=== PATIENT | female | born 1930 | race Caucasian/White ===

== ENCOUNTER 2016-10-30 10:43 | Outpatient (POV) | END 2016-10-30 10:44 | disposition home or self-care (01) | LOC: OUTPT 10:43 | PROVIDERS: ATTEND Otolaryngology | DX: G62.9 Polyneuropathy, unspecified (principal); R26.9 Unspecified abnormalities of gait and mobility ==

== ENCOUNTER 2016-10-30 12:13 | Outpatient (CLI) ==
[2016-10-30 12:57] VITALS: BMI 22.3
== END 2016-10-30 12:14 | disposition home or self-care (01) ==
LOC: DIETCN 12:13
PROVIDERS: ATTEND Psychiatry & Neurology Psychiatry
DX: F32.2 Major depressive disorder, single episode, severe without psychotic features (principal); F41.1 Generalized anxiety disorder

== ENCOUNTER 2016-10-30 15:01 | Outpatient (RCR) ==
[2016-10-30 12:57] VITALS: BMI 22.3
--- NOTE | 2016-10-31 16:49 | RS.OPPTEV2 ---
Date of Note: 10/30/16 Visit #: 1 Date of Evaluation: 10/30/16 Payer Source: MEDICARE Treatment Diagnosis: Gait difficulty, decreased balance Prior Level of Function.....Patient was independent with: ADL's, Self Care, Caregiving, Ambulation/Mobility, Community Integration/Access Functional Limitations: ADL's, Standing, Ambulation, Community Access/ Integration Current Subjective/complaints:: Patient reports she loses her balance quite a bit. States she has dizziness with activity. States she is not as active as she used to be. Walking very far and activities around the house cause increased back pain. She lays down a lot, because that gives her relief of her back pain. She has tingling in her feet at times, possibly due to being Diabetic. She denies catching her feet when walking. States she has stairs in her home, but she descends the stairs backward for safety. States she has had three big falls in the last two years. States lately she has been able to catch herself when getting off balance from being dizzy. Medical History Surgical History Comments:: Left TKA 2001, Right KTA 2006, Left TSR 2002, cataract surgery 2010, Left mastectomy 2012 Hx Home Medications: xanax, prozac Patient's Goals: Her goal is to be more safe with her walking. Functional Outcome Measure Tinetti: 18 (18/=35.8% impairment) - G Codes & Severity Modifier G Codes & Modifier: Mob current CJ. Mob goal CI Source of G Code score: Tinetti Assessment Observation - Observation Posture: Forward Head, Rounded Shoulders, Decreased Lumbar Lordosis Gait - Gait Pattern Gait Comments: Patient ambulates without an assistive device with decreased stance slightly on the left LE compared to the right. She demonstrates a slow, cautious gait. General Range of Motion: Bilateral LE AROM is WFL's. Muscle Strength: Bilateral hip strength is generally 4/5. Quads and HS 4 to 4+/ 5, ankles 4+/5. Trunk strength 4/5. Sensation - Sensation Comments: Currently reports sensation intact to light touch and deep pressure throughout bilateral LE's. Reports times of tingling in the feet. Balance - Sitting Balance Static Sitting Balance: Good Dynamic Sitting Balance: Good - Standing Balance Static Standing Balance: Good (-) Dynamic Standing Balance: Fair (+) - Comments Balance Assessment Comments: Patient demonstrates good static balance on the Balance Data Lead with eyes open. Eyes closed impairs static balance moderately. Attempted Limits of Stability to assess areas of impairment with dynamic balance. However, patient was unable to understand shifting her weight on her feet. Instead she moved her upper body in the direction she needed to go. Coordination - Tests Bilateral Toe Tapping: Normal/Intact Interventions - Exercise/Activities/Manual Therapy Exercises/Activities: none Manual Therapy: none - Charges Total Direct Minutes: 50 mins Total Treatment Time: 50 mins Procedures billed for this date of service:: ROS[facility] Assessment Assessment: Patient presents to therapy with a diagnosis of gait difficulty and neuropathy. She presents weakness in bilateral hips. Presents to be at a high risk for falls with a score of 18 on the Tinetti Assessment. Dynamic standing balance presents to be impaired. She demonstrates good potential to gain safety and decrease her risk for falls with strengthening and balance exercises. Patient Education: Education of diagnosis, Body/Joint mechanics, Activity Modification, Education of Plan of Care Rehab Potential: Good Short Term Goals Goal #1: Patient independent in basic HEP. Goal to be met by: 11/14/16 Goal #2: Bilateral hip flexion 4+/5. Goal to be met by: 11/14/16 Goal #3: Pt to demo. minimal displacement with static balance with eyes closed. Goal to be met by: 11/14/16 Alf Goals Goal #1: Pt knows HEP and to cont. ex's to maintain functional level at D/C. Goal to be met by: 12/10/16 Goal #2: Score on Tinetti Assessment improved to 23/28. Goal to be met by: 12/10/16 Goal #3: Pt to ambulate community distances with improved confidence & good safety. Goal to be met by: 12/10/16 Plan - Treatment to be Provided Procedures: Therapeutic Exercises, Therapeutic Activity, Neuromuscular Rehab, Patient Education Modalities: No Modalities - Treatment Plan Frequency: 1-2 X week Duration: 4 weeks ORDER # VISITS AND/OR THROUGH DATE: 12/10/16 - Treatment Code (1) Gait abnormality Comments: R26.9 (2) Impaired functional mobility, balance, gait, and endurance Comments: Z74.09 (3) Bilateral leg weakness Comments: R29.894
== END 2016-11-05 ==
PROVIDERS: ATTEND Family Medicine
DX: R26.9 Unspecified abnormalities of gait and mobility (principal); G62.9 Polyneuropathy, unspecified

== ENCOUNTER → 2016-11-05 | Outpatient (RCR) | LOC: NEWBEG 10-20 10:33 | PROVIDERS: ATTEND Psychiatry & Neurology Psychiatry | DX: F32.2 Major depressive disorder, single episode, severe without psychotic features (principal); F41.1 Generalized anxiety disorder | CPT/HCPCS: 90792; 90853; 97802; 99213 ==

== ENCOUNTER 2016-12-01 10:00 | Outpatient (RCR) | END 2016-12-05 | LOC: NEWBEG 10:00 | PROVIDERS: ATTEND Psychiatry & Neurology Psychiatry | DX: F32.2 Major depressive disorder, single episode, severe without psychotic features (principal); F41.1 Generalized anxiety disorder | CPT/HCPCS: 90853; 99213 ==

== ENCOUNTER 2017-01-02 10:00 | Outpatient (RCR) | END 2017-01-05 | LOC: NEWBEG 10:00 | PROVIDERS: ATTEND Psychiatry & Neurology Psychiatry | DX: F32.2 Major depressive disorder, single episode, severe without psychotic features (principal); F41.1 Generalized anxiety disorder | CPT/HCPCS: 90853; 99213 ==

== ENCOUNTER 2017-01-30 11:15 | Outpatient (RCR) | END 2017-02-05 | LOC: NEWBEG 11:15 | PROVIDERS: ATTEND Psychiatry & Neurology Psychiatry | DX: F32.2 Major depressive disorder, single episode, severe without psychotic features (principal); F41.1 Generalized anxiety disorder | CPT/HCPCS: 90853; 99213 ==

== ENCOUNTER 2017-09-04 11:00 | Outpatient (RCR) ==
--- NOTE | 2017-08-21 08:35 | RS.OPPTEV2 ---
Date of Note: 08/19/17 Visit #: 1 Date of Evaluation: 08/19/17 Payer Source: MEDICARE Surgery Performed?: No Treatment Diagnosis: muscle strain of R thigh History of Condition/Mechanism of Injury:: pt states she was carrying things up from basement at [facility] and pulled muscle. Prior Level of Function.....Patient was independent with: ADL's, Self Care, Caregiving, Ambulation/Mobility, Community Integration/Access Functional Limitations: ADL's, Standing, Ambulation, Community Access/ Integration Current Subjective/complaints:: pt sates that she has been having pain since [facility]. Treatment Side (optional): Right *Precautions: n/a Medical History Medical History: Diabetes, Cancer Surgical History: Knee Replacement, Hysterectomy Surgical History Comments:: Left TKA 2001, Right KTA 2006, Left TSR 2002, cataract surgery 2010, Left mastectomy 2012 Smoking Status: Never smoker Hx Home Medications: biotin, calcium carbonate, fish oil, gemfibrozil, glyburide , hydrocodone-acetaminophen, iron, metformin, mirtazapine, omeprazole, pravastatin, valsartan, vitamin D, Patient's Goals: decrease pain Pain Assessment - Pain Description Pain Location: R thigh Pain Description: Sharp, Aching Current Pain Intensity: 1-2/10 at rest Worst Pain Intensity: 10/10 Functional Outcome Measure LE Functional Scale: 13 (84%) - G Codes & Severity Modifier G Codes & Modifier: mobility current CM. mobility goal CK Source of G Code score: LE functional index scale Observation - Observation Inspection: pt reports her hardest thing is to get RLE into and out of car Posture: Forward Head, Rounded Shoulders, Increased Thoracic Kyphosis Handedness: Right Gait - Gait Pattern General Gait Pattern Observation: Antalgic Gait, Short Stance Time (R) General Range of Motion: L shld flex 110 abd 100, otherwise WFL's. R UE WFL's. BLE WFL 's Muscle Strength: L shld flex 3-/5, elbow flex/ext 4+/5. RUE 5/5. LLE 4+/5, RLE hip flex 3+/5, knee flex 4-/5, ext 4/5, ankle DF/PF 4+/5 Hip ROM: Bilaterally WFL's Hip Muscle Strength: Left WFL's - Right Hip ROM Right Hip ROM Limitations: Soft Tissue Tightness, Pain, Muscle Weakness, Pain on Right - Right Hip Strength Right Hip Flexion: 3+ Fair+ Right Hip Extension: 3+ Fair+ - Special Test SHAWANDA Test: Negative Right Crissy Test: Positive Right Palpation Palpation Findings: Tenderness, Muscle Guarding Comments:: R thigh, quads Sensation - Sensation Right Upper Extremity: Intact/Normal Left Upper Extremity: Intact/Normal Right Lower Extremity: Intact/Normal Left Lower Extremity: Intact/Normal Balance - Sitting Balance Static Sitting Balance: Normal Dynamic Sitting Balance: Normal - Standing Balance Static Standing Balance: Good Dynamic Standing Balance: Fair - Comments Balance Assessment Comments: TUG 40 secs - Heat/Cryotherapy Treatment: Cryotherapy (R thigh) Interventions - Exercise/Activities/Manual Therapy Exercises/Activities: pt received IT band stretch, hamstring stretch, QS, isometric hip add, Manual Therapy: n/a HOME EXERCISE PROGRAM: pt given written HEP including IT band stretch, hamstring stretch, QS, SAQ - Charges Timed Code Treatment Minutes: 50 Total Treatment Time: 60 Procedures billed for this date of service:: eval Pumodo cold pack EVALUATION COMPLEXITY LEVEL EVALUATION COMPLEXITY LEVEL: HISTORY: Medium (DM, age, pain ), EXAM OF BODY SYSTEMS: Medium (pain, balance, gait, strength), CLINICAL PRESENTATION: Medium, CLINICAL DECISION MAKING: Medium Assessment Assessment: pt presents with muscle strain, as well as tightness in R IT band, hamstrings as well as muscle weakness as well as pain in RLE Patient Education: Home Exercise Program, Education of Plan of Care Rehab Potential: Good Short Term Goals Goal #1: pt rate pain < 6/10 with activity Goal to be met by: 09/02/17 Goal #2: pt with decreased hamstring tightness BLE Goal to be met by: 09/02/17 Goal #3: pt amb in dept with no LOB with decreased antalgic gait Goal to be met by: 09/02/17 Goal #4: pt independent with initial HEP Goal to be met by: 09/02/17 Flatwork Finisher Hand Goals Goal #1: Improve RLE strength 4 to 4+/5 Goal to be met by: 09/18/17 Goal #2: Decreased hamstring, IT band tightness to WFL's Goal to be met by: 09/18/17 Goal #3: pt able to lift leg into car with decreased pain and difficulty Goal to be met by: 09/18/17 Goal #4: pt amb community distances with decreased antalagic gait Goal to be met by: 09/18/17 Plan - Treatment to be Provided Procedures: Therapeutic Exercises, Therapeutic Activity, Gait Training, Neuromuscular Rehab, Manual Therapy, Massage, Patient Education Modalities: Cryotherapy, Hot Packs - Treatment Plan Frequency: 3 X week Duration: 4 weeks ORDER # VISITS AND/OR THROUGH DATE: 09/18/17 - Treatment Code (1) Muscle tightness Code(s): M62.89 - OTHER SPECIFIED DISORDERS OF MUSCLE (2) Strain of muscle of right hip Code(s): S76.011A - STRAIN OF MUSCLE, FASCIA AND TENDON OF RIGHT HIP, INIT Qualifiers: Encounter type: initial encounter Qualified Code(s): S76.011A - Strain of muscle, fascia and tendon of right hip, initial encounter (3) Pain in right thigh Code(s): M79.651 - PAIN IN RIGHT THIGH (4) Muscle weakness Code(s): M62.81 - MUSCLE WEAKNESS (GENERALIZED)
--- NOTE | 2017-08-21 13:42 | RS.OPPTDN ---
Subjective Date of Note: 08/21/17 Visit #: 2 Date of Evaluation: 08/19/17 Payer Source: MEDICARE Treatment Diagnosis: muscle strain of R thigh Current Subjective/complaints:: pt states she has been practicing her exercises at home. pt states she forgot to try to use the cane to assist with gait safety as well as decrease some of the pain while amb. *Precautions: n/a Pain Assessment - Pain Description Pain Location: R thigh Pain Description: Sharp, Aching Current Pain Intensity: 5/10 Worst Pain Intensity: 8/10 - Heat/Cryotherapy Treatment: Hot Pack Comments:: R thigh Balance System Training - Balance Training Comments pt continues with increased lat sway during amb. Interventions - Exercise/Activities/Manual Therapy Exercises/Activities: pt received IT band stretch, hamstring stretch, quads stretch with assist. pt performed QS, SAQ, isometric hip add, hip abd/add, forward lunges, side lunges x 10 reps pt requires multiple rest periods during ex and verbal cues for technique Manual Therapy: n/a HOME EXERCISE PROGRAM: pt given written HEP including IT band stretch, hamstring stretch, QS, SAQ. added isometric hip add and forward and side lunges - Charges Timed Code Treatment Minutes: 40 Total Treatment Time: 50 Procedures billed for this date of service:: ex 3, HP Assessment: pt progressing with increased tolerance of ex as well as pt appears to be very motivated to participate with PT Patient Education: Home Exercise Program, Activity Modification, Education of Plan of Care Patient demonstrates compliance with HEP?: Yes Short Term Goals Goal #1: pt rate pain < 6/10 with activity Goal to be met by: 09/02/17 Progress towards Goal:: Progressing Comments:: pt rates pain 5/10 Goal #2: pt with decreased hamstring tightness BLE Goal to be met by: 09/02/17 Progress towards Goal:: Progressing Goal #3: pt amb in dept with no LOB with decreased antalgic gait Goal to be met by: 09/02/17 Progress towards Goal:: Progressing Comments:: reinforced with pt to try cane to improve gait sequencing Goal #4: pt independent with initial HEP Goal to be met by: 09/02/17 Progress towards Goal:: Progressing Comments:: pt demonstrates participation with HEP Enterprise Resource Analyst Goals Goal #1: Improve RLE strength 4 to 4+/5 Goal to be met by: 09/18/17 Goal #2: Decreased hamstring, IT band tightness to WFL's Goal to be met by: 09/18/17 Goal #3: pt able to lift leg into car with decreased pain and difficulty Goal to be met by: 09/18/17 Goal #4: pt amb community distances with decreased antalagic gait Goal to be met by: 09/18/17 Plan PLAN OF CARE EXPIRES ON:: 09/18/17 ORDER # VISITS AND/OR THROUGH DATE: 09/18/17 PLAN: continue to progress with stretching as well as strengthening to improve functional mobility.
--- NOTE | 2017-08-24 12:12 | RS.OPPTDN ---
Subjective Date of Note: 08/24/17 Visit #: 3 Date of Evaluation: 08/19/17 Payer Source: MEDICARE Treatment Diagnosis: muscle strain of R thigh Current Subjective/complaints:: Patient says she almost cancelled because she hasn't felt very good. She says she missed catholic yesterday due to not feeling well into her back and R leg. She wonders if some of the exercises caused this pain. *Precautions: n/a Pain Assessment - Pain Description Pain Location: low back and R hip/LE - Heat/Cryotherapy Treatment: Hot Pack (20 mins over the R LB/hip and thigh in sidelying) Interventions - Exercise/Activities/Manual Therapy Exercises/Activities: Patient assisted with stretches of: SKTC, HS, heel cord, Quads, and ITB. She performs: QS, SAQ, isometric hip abd/flexion, and pillow squeezes 2x10. Avoided lunges as patient feels these are what caused her increase in pain. Patient will omit these for home for 2 days to verify any symptom change. Total minutes of Exercise: 25 Manual Therapy: n/a HOME EXERCISE PROGRAM: pt given written HEP including IT band stretch, hamstring stretch, QS, SAQ. added isometric hip add and forward and side lunges - Charges Timed Code Treatment Minutes: 25 Total Treatment Time: 45 Procedures billed for this date of service:: HP, EX2 Assessment: Patient has had increased pain yesterday preventing her from going to [facility]. She had taken a pain pill and rested with a heating pad to the R LB and hip, which relieved her somewhat. She is able to tootie all therex today with having only slight discomfort/fatigue with SKTC and isometric hip flexion. We avoided the activities she felt was related to her elevated pain in hopes that she would notice any change and decrease in pain over the next few days. She amb with very short stride today and decrease wBing on the R LE and without AD. Encouraged her to utilize her cane to assist with amb. Patient Education: Body/Joint mechanics, Home Exercise Program, Education of Plan of Care Patient demonstrates compliance with HEP?: Yes Short Term Goals Goal #1: pt rate pain < 6/10 with activity Goal to be met by: 09/02/17 Progress towards Goal:: Progressing Goal #2: pt with decreased hamstring tightness BLE Goal to be met by: 09/02/17 Progress towards Goal:: Progressing Goal #3: pt amb in dept with no LOB with decreased antalgic gait Goal to be met by: 09/02/17 Progress towards Goal:: Progressing Goal #4: pt independent with initial HEP Goal to be met by: 09/02/17 Progress towards Goal:: Progressing Half-Way Goals Goal #1: Improve RLE strength 4 to 4+/5 Goal to be met by: 09/18/17 Goal #2: Decreased hamstring, IT band tightness to WFL's Goal to be met by: 09/18/17 Goal #3: pt able to lift leg into car with decreased pain and difficulty Goal to be met by: 09/18/17 Goal #4: pt amb community distances with decreased antalagic gait Goal to be met by: 09/18/17 Plan PLAN OF CARE EXPIRES ON:: 09/18/17 ORDER # VISITS AND/OR THROUGH DATE: 09/18/17 PLAN: Patient to continue TIW for therex and treatment to the R LE
--- NOTE | 2017-08-26 13:08 | RS.OPPTDN ---
Subjective Date of Note: 08/26/17 Visit #: 4 Date of Evaluation: 08/19/17 Payer Source: MEDICARE Treatment Diagnosis: muscle strain of R thigh Current Subjective/complaints:: Patient says her back and hip is not hurting like it did on Thursday. She says she has avoided lunging at home to help her pain also. She says she feels treatment is helping and her leg is feeling more flexible. *Precautions: n/a - Heat/Cryotherapy Treatment: Hot Pack (over R side of her back and hip/thigh in sidelying) Interventions - Exercise/Activities/Manual Therapy Exercises/Activities: Patient assisted with stretches of: SKTC, HS, heel cord, Quads, and ITB. She performs: QS, SAQ 1#, isometric hip abd/flexion, and pillow squeezes 2x10. Began SLR 2x5, and short range bridge 2x5. Total minutes of Exercise: 24 Manual Therapy: n/a HOME EXERCISE PROGRAM: pt given written HEP including IT band stretch, hamstring stretch, QS, SAQ. added isometric hip add and forward and side lunges - Charges Timed Code Treatment Minutes: 24 Total Treatment Time: 44 Procedures billed for this date of service:: hp, ex2 Assessment: Patient admitting reduced R sided back and R LE pain since previous session. She continues to perform HEP, but omits lunges to reduce elevation of pain. We will possibly resume them in 1-2 sessions. She demo improve HS length to the R today compared to recent visit. Patient Education: Body/Joint mechanics, Home Exercise Program Patient demonstrates compliance with HEP?: Yes Short Term Goals Goal #1: pt rate pain < 6/10 with activity Goal to be met by: 09/02/17 Progress towards Goal:: Progressing Goal #2: pt with decreased hamstring tightness BLE Goal to be met by: 09/02/17 Progress towards Goal:: Progressing Goal #3: pt amb in dept with no LOB with decreased antalgic gait Goal to be met by: 09/02/17 Progress towards Goal:: Progressing Goal #4: pt independent with initial HEP Goal to be met by: 09/02/17 Progress towards Goal:: Progressing Reclaimer Goals Goal #1: Improve RLE strength 4 to 4+/5 Goal to be met by: 09/18/17 Progress towards goal: Progressing Goal #2: Decreased hamstring, IT band tightness to WFL's Goal to be met by: 09/18/17 Progress towards goal: Progressing Goal #3: pt able to lift leg into car with decreased pain and difficulty Goal to be met by: 09/18/17 Goal #4: pt amb community distances with decreased antalagic gait Goal to be met by: 09/18/17 Plan PLAN OF CARE EXPIRES ON:: 09/18/17 ORDER # VISITS AND/OR THROUGH DATE: 09/18/17 PLAN: Patient to attend TIW for modalities and therex for the R LE/low back.
--- NOTE | 2017-08-28 16:22 | RS.OPPTDN ---
Subjective Date of Note: 08/28/17 Visit #: 5 Date of Evaluation: 08/19/17 Payer Source: MEDICARE Treatment Diagnosis: muscle strain of R thigh Current Subjective/complaints:: Patient reports increased muscle soreness last night following increased activity at home. She reports she put heat on her right hip and did some stretches which seemed to help. *Precautions: n/a Pain Assessment - Pain Description Pain Location: Right hip and thigh Current Pain Intensity: mild to mod - Heat/Cryotherapy Treatment: Hot Pack ([id number] to the right hip and lowback prior to EX. Patient in left side-lying. ) Interventions - Exercise/Activities/Manual Therapy Exercises/Activities: Assisted stretching of bilateral SKTC and HS, Stretching of right heel cords and and ITB. QS, isometric hip abd, isometric hip flexion, and pillow squeezes 2x10. Increased to 2# for SAQ. SLR on right 2s/10reps. Yellow theraband for right ankle df 2s/10reps. Sitting hip flexion. Total minutes of Exercise: 30mins Manual Therapy: n/a HOME EXERCISE PROGRAM: pt given written HEP including IT band stretch, hamstring stretch, QS, SAQ. added isometric hip add and forward and side lunges - Charges Timed Code Treatment Minutes: 30mins Total Treatment Time: 40mins Procedures billed for this date of service:: EX2 Assessment: Patient reports working on HEP. Patient Education: Home Exercise Program, Home Safety, Activity Modification Patient demonstrates compliance with HEP?: Yes Short Term Goals Goal #1: pt rate pain < 6/10 with activity Goal to be met by: 09/02/17 Progress towards Goal:: Progressing Goal #2: pt with decreased hamstring tightness BLE Goal to be met by: 09/02/17 Progress towards Goal:: Progressing Goal #3: pt amb in dept with no LOB with decreased antalgic gait Goal to be met by: 09/02/17 Progress towards Goal:: Progressing Goal #4: pt independent with initial HEP Goal to be met by: 09/02/17 Progress towards Goal:: Progressing Trim Technician Goals Goal #1: Improve RLE strength 4 to 4+/5 Goal to be met by: 09/18/17 Progress towards goal: Progressing Goal #2: Decreased hamstring, IT band tightness to WFL's Goal to be met by: 09/18/17 Progress towards goal: Progressing Goal #3: pt able to lift leg into car with decreased pain and difficulty Goal to be met by: 09/18/17 Goal #4: pt amb community distances with decreased antalagic gait Goal to be met by: 09/18/17 Plan PLAN OF CARE EXPIRES ON:: 09/18/17 ORDER # VISITS AND/OR THROUGH DATE: 09/18/17 PLAN: Progress exercise to increase patients functional activity level.
--- NOTE | 2017-08-31 14:30 | RS.OPPTDN ---
Subjective Date of Note: 08/31/17 Visit #: 6 Date of Evaluation: 08/19/17 Payer Source: MEDICARE Treatment Diagnosis: muscle strain of R thigh Current Subjective/complaints:: Patient reports increased pain in the right groin again over the weekend. States she is walking better but continues to have pain when lifting right LE into car. *Precautions: n/a Pain Assessment - Pain Description Pain Location: Right groin and inner thigh Pain Description: Aching Current Pain Intensity: mod - Heat/Cryotherapy Treatment: Hot Pack ([id number] to the right groin and anterior medial thigh prior to EX. Patient in supine. ) Interventions - Exercise/Activities/Manual Therapy Exercises/Activities: Assisted stretching of bilateral SKTC and HS, Stretching of right heel cords and and ITB. Figure 4 hip stretch and quad stretch at EOB. QS, isometric hip abd, isometric hip flexion, and pillow squeezes, and isometric ankle inversion. Increased to 3# for SAQ and SLR on right 2s/10reps. Red theraband for right ankle df, hip add, and hip abd in hook-lying, 2s/ 10reps each. Total minutes of Exercise: 24mins Manual Therapy: Manual therapy of massage to the right thigh during figure 4 hip stretch and quad stretch at EOB. HOME EXERCISE PROGRAM: pt given written HEP including IT band stretch, hamstring stretch, QS, SAQ. added isometric hip add and forward and side lunges - Charges Timed Code Treatment Minutes: 24mins Total Treatment Time: 45mins Procedures billed for this date of service:: HP, EX2 Assessment: Patient responds well to addition of manual therapy during right LE stretching. Patient Education: Body/Joint mechanics, Home Exercise Program, Activity Modification Patient demonstrates compliance with HEP?: Yes Short Term Goals Goal #1: pt rate pain < 6/10 with activity Goal to be met by: 09/02/17 Progress towards Goal:: Partially Met Goal #2: pt with decreased hamstring tightness BLE Goal to be met by: 09/02/17 Progress towards Goal:: Partially Met Goal #3: pt amb in dept with no LOB with decreased antalgic gait Goal to be met by: 09/02/17 Progress towards Goal:: Progressing Goal #4: pt independent with initial HEP Goal to be met by: 09/02/17 Progress towards Goal:: Progressing Mass Spectrometry Specialist Goals Goal #1: Improve RLE strength 4 to 4+/5 Goal to be met by: 09/18/17 Progress towards goal: Partially Met Goal #2: Decreased hamstring, IT band tightness to WFL's Goal to be met by: 09/18/17 Progress towards goal: Progressing Goal #3: pt able to lift leg into car with decreased pain and difficulty Goal to be met by: 09/18/17 Progress towards goal: No Change Goal #4: pt amb community distances with decreased antalagic gait Goal to be met by: 09/18/17 Plan PLAN OF CARE EXPIRES ON:: 09/18/17 ORDER # VISITS AND/OR THROUGH DATE: 09/18/17 PLAN: Continue and progress exercise to reduce pain and increase functional mobility and gait with daily activities.
--- NOTE | 2017-09-02 12:07 | RS.OPPTDN ---
Subjective Date of Note: 09/02/17 Visit #: 7 Date of Evaluation: 08/19/17 Payer Source: MEDICARE Treatment Diagnosis: muscle strain of R thigh Current Subjective/complaints:: Reports she had less pain in the right anterior groin and thigh following last session. States she is working on HEP. *Precautions: n/a Pain Assessment - Pain Description Pain Location: right anterior thigh and groin Pain Description: Aching Current Pain Intensity: mild to mod - Heat/Cryotherapy Treatment: Hot Pack ([id number] to the right thigh prior to EX. Patient in supine. ) Interventions - Exercise/Activities/Manual Therapy Exercises/Activities: Assisted stretching of bilateral SKTC and HS, Stretching of right heel cords and and ITB. Figure 4 hip stretch and quad stretch at EOB. QS, isometric hip abd, isometric hip flexion, and pillow squeezes, and isometric ankle inversion. 3# for SAQ and alt hip flexion, 2s/10reps each side. SLR on right 2s/10reps. Red theraband for hip add, and hip abd in hook- lying, 2s/10reps each. Red theraband for ankle df and ham curl 2s/10reps bilaterally. And assisted to car in parking lot. Total minutes of Exercise: 25mins/28mins Manual Therapy: Manual therapy of massage to the right thigh during figure 4 hip stretch and quad stretch at EOB. HOME EXERCISE PROGRAM: pt given written HEP including IT band stretch, hamstring stretch, QS, SAQ. added isometric hip add and forward and side lunges - Charges Timed Code Treatment Minutes: 25mins Total Treatment Time: 48mins Procedures billed for this date of service:: HP, EX2 Assessment: Patient reporting improvement in pain with treatment. She is motivated to work on basic HEP. Patient Education: Home Exercise Program Patient demonstrates compliance with HEP?: Yes Short Term Goals Goal #1: pt rate pain < 6/10 with activity Goal to be met by: 09/02/17 Progress towards Goal:: Partially Met Goal #2: pt with decreased hamstring tightness BLE Goal to be met by: 09/02/17 Progress towards Goal:: Partially Met Goal #3: pt amb in dept with no LOB with decreased antalgic gait Goal to be met by: 09/02/17 Progress towards Goal:: Partially Met Goal #4: pt independent with initial HEP Goal to be met by: 09/02/17 Progress towards Goal:: Progressing Skilled Nursing Goals Goal #1: Improve RLE strength 4 to 4+/5 Goal to be met by: 09/18/17 Progress towards goal: Partially Met Goal #2: Decreased hamstring, IT band tightness to WFL's Goal to be met by: 09/18/17 Progress towards goal: Progressing Goal #3: pt able to lift leg into car with decreased pain and difficulty Goal to be met by: 09/18/17 Progress towards goal: No Change Goal #4: pt amb community distances with decreased antalagic gait Goal to be met by: 09/18/17 Plan PLAN OF CARE EXPIRES ON:: 09/18/17 ORDER # VISITS AND/OR THROUGH DATE: 09/18/17 PLAN: Progress exercise to reduce right LE pain and increase functional activity and ambulation.
--- NOTE | 2017-09-07 08:56 | RS.OPPTDN ---
Subjective Date of Note: 09/04/17 Visit #: 8 Date of Evaluation: 08/19/17 Payer Source: MEDICARE Treatment Diagnosis: muscle strain of R thigh Current Subjective/complaints:: pt states she is tired, feels she has been overdoing it this week trying to prepare for family coming for . *Precautions: n/a Pain Assessment - Pain Description Pain Location: R LE Pain Description: Sharp, Aching Current Pain Intensity: 4 - Heat/Cryotherapy Treatment: Hot Pack Comments:: R LE Interventions - Exercise/Activities/Manual Therapy Exercises/Activities: Stretching to R Quad, hamstring, heel cord stretch, figure 4 stretch, pt performed isometric hip add, hip abd, hip flex with red tband, SAQ, alt hip flex with 3 #weight. hip abd/add in hook lying. DF, ham curls x 2 sets of 10 reps. Manual Therapy: Manual therapy of massage to the right thigh during figure 4 hip stretch HOME EXERCISE PROGRAM: pt given written HEP including IT band stretch, hamstring stretch, QS, SAQ. added isometric hip add and forward and side lunges - Charges Timed Code Treatment Minutes: 52 Total Treatment Time: 62 Procedures billed for this date of service:: exercise 3 Assessment: pt progressing with decreased pain as well as increased strength. pt is progressing toward goals. Patient Education: Home Exercise Program, Activity Modification, Education of Plan of Care Patient demonstrates compliance with HEP?: Yes Short Term Goals Goal #1: pt rate pain < 6/10 with activity Goal to be met by: 09/02/17 Progress towards Goal:: Met Goal #2: pt with decreased hamstring tightness BLE Goal to be met by: 09/02/17 Progress towards Goal:: Partially Met Goal #3: pt amb in dept with no LOB with decreased antalgic gait Goal to be met by: 09/02/17 Progress towards Goal:: Met Goal #4: pt independent with initial HEP Goal to be met by: 09/02/17 Progress towards Goal:: Progressing Alf Goals Goal #1: Improve RLE strength 4 to 4+/5 Goal to be met by: 09/18/17 Progress towards goal: Partially Met Goal #2: Decreased hamstring, IT band tightness to WFL's Goal to be met by: 09/18/17 Progress towards goal: Progressing Goal #3: pt able to lift leg into car with decreased pain and difficulty Goal to be met by: 09/18/17 Progress towards goal: No Change Goal #4: pt amb community distances with decreased antalagic gait Goal to be met by: 09/18/17 Plan PLAN OF CARE EXPIRES ON:: 09/18/17 ORDER # VISITS AND/OR THROUGH DATE: 09/18/17 PLAN: continue to progress with stretching and strengthening to improve functional mobility and decrease pain.
== END 2017-09-05 ==
PROVIDERS: ATTEND Orthopaedic Surgery
DX: S76.911A Strain of unspecified muscles, fascia and tendons at thigh level, right thigh, initial encounter (principal)

== ENCOUNTER 2017-09-09 11:00 | Outpatient (RCR) ==
--- NOTE | 2017-09-07 13:55 | RS.OPPTDN ---
Subjective Date of Note: 09/07/17 Visit #: 9 Date of Evaluation: 08/19/17 Payer Source: MEDICARE Treatment Diagnosis: muscle strain of R thigh Current Subjective/complaints:: Patient reports increased soreness right thigh muscles today. States she did more housework getting ready for a family dinner at her house. *Precautions: n/a Pain Assessment - Pain Description Pain Location: Right anterior thight and groin Pain Description: soreness Current Pain Intensity: mild to mod - Heat/Cryotherapy Treatment: Hot Pack ([id number] to the right thigh prior to EX. Patient in supine. ) Interventions - Exercise/Activities/Manual Therapy Exercises/Activities: Assisted stretching of bilateral SKTC, HS, right heel cords and and ITB. Figure 4 hip stretch and quad stretch at EOB. QS, isometric hip abd, isometric hip flexion, and pillow squeezes between feet for ankle inversion. 3# for SAQ and alt hip flexion, 2s/10reps each side. SLR on right 2s /10reps. Red theraband for hip add, and hip abd in hook-lying, 2s/10reps each. Red theraband for ankle df curl 2s/10reps bilaterally. No additions today due to patient having c/o increased muscle soreness. Total minutes of Exercise: 23mins/25mins Manual Therapy: Manual therapy of massage to the right thigh during figure 4 hip stretch and quad stretch at EOB. HOME EXERCISE PROGRAM: pt given written HEP including IT band stretch, hamstring stretch, QS, SAQ. added isometric hip add and forward and side lunges - Charges Timed Code Treatment Minutes: 23mins Total Treatment Time: 45mins Procedures billed for this date of service:: HP, EX2 Assessment: Patient with a flair-up of muscle soreness right groin and thigh due to increased activity at home. Patient Education: Body/Joint mechanics, Home Exercise Program, Home Safety Patient demonstrates compliance with HEP?: Yes Short Term Goals Goal #1: pt rate pain < 6/10 with activity Goal to be met by: 09/02/17 Progress towards Goal:: Partially Met Goal #2: pt with decreased hamstring tightness BLE Goal to be met by: 09/02/17 Progress towards Goal:: Partially Met Goal #3: pt amb in dept with no LOB with decreased antalgic gait Goal to be met by: 09/02/17 Progress towards Goal:: Partially Met Goal #4: pt independent with initial HEP Goal to be met by: 09/02/17 Progress towards Goal:: Progressing Fpc Goals Goal #1: Improve RLE strength 4 to 4+/5 Goal to be met by: 09/18/17 Progress towards goal: Partially Met Goal #2: Decreased hamstring, IT band tightness to WFL's Goal to be met by: 09/18/17 Progress towards goal: Progressing Goal #3: pt able to lift leg into car with decreased pain and difficulty Goal to be met by: 09/18/17 Progress towards goal: No Change Goal #4: pt amb community distances with decreased antalagic gait Goal to be met by: 09/18/17 Plan PLAN OF CARE EXPIRES ON:: 09/18/17 ORDER # VISITS AND/OR THROUGH DATE: 09/18/17 PLAN: Continue exercise and reassess patients progress next session.
--- NOTE | 2017-09-09 15:10 | RS.OPPTDN ---
Subjective Date of Note: 09/09/17 Visit #: 10 Date of Evaluation: 08/19/17 Payer Source: MEDICARE Treatment Diagnosis: muscle strain of R thigh Current Subjective/complaints:: Patient says she is a little better, but still struggles daily with getting in/out of the car. She reports continued weakness to the R LE and soreness to the R anterior thigh. *Precautions: n/a - Heat/Cryotherapy Treatment: Hot Pack (over the R hip/thigh anteriorally x 15 mins in sidelying) Interventions - Exercise/Activities/Manual Therapy Exercises/Activities: Assisted stretching of bilateral SKTC, HS, right heel cords and and ITB. Figure 4 hip stretch and quad stretch at EOB. QS, isometric hip abd, isometric hip flexion, and pillow squeezes between feet for ankle inversion. 3# for SAQ and alt hip flexion, 2s/10reps each side. SLR on right 2s /10reps. Red theraband for hip add, and hip abd in hook-lying, 2s/10reps each. Red theraband for ankle df curl 2s/10reps bilaterally. Completed LE Functional Index over the phone. Total minutes of Exercise: 26 Manual Therapy: na HOME EXERCISE PROGRAM: pt given written HEP including IT band stretch, hamstring stretch, QS, SAQ. added isometric hip add and forward and side lunges - Charges Timed Code Treatment Minutes: 26 Total Treatment Time: 41 Procedures billed for this date of service:: hp, ex2 Assessment: Patient demo slight improvement in LE Functional Index placing her in a better category, but remains with difficulty with getting in/out of the car. Ascending stairs has become somewhat easier, but because she leads with her L LE instead of R. She demo 72% impairment at this point (84% at eval). Patient Education: Education of diagnosis, Home Exercise Program, Education of Plan of Care Patient demonstrates compliance with HEP?: Yes (intermittently) Short Term Goals Goal #1: pt rate pain < 6/10 with activity Goal to be met by: 09/02/17 Progress towards Goal:: Partially Met Comments:: Does not rate today, but recently reported 4/10 Goal #2: pt with decreased hamstring tightness BLE Goal to be met by: 09/02/17 Progress towards Goal:: Partially Met Goal #3: pt amb in dept with no LOB with decreased antalgic gait Goal to be met by: 09/02/17 Progress towards Goal:: Met Goal #4: pt independent with initial HEP Goal to be met by: 09/02/17 Progress towards Goal:: Progressing Comments:: Patient needs to be more consistent [employer] Goals Goal #1: Improve RLE strength 4 to 4+/5 Goal to be met by: 09/18/17 Progress towards goal: Partially Met Goal #2: Decreased hamstring, IT band tightness to WFL's Goal to be met by: 09/18/17 Progress towards goal: Progressing Goal #3: pt able to lift leg into car with decreased pain and difficulty Goal to be met by: 09/18/17 Progress towards goal: No Change Goal #4: pt amb community distances with decreased antalagic gait Goal to be met by: 09/18/17 Progress towards goal: No Change (short distances only) Plan PLAN OF CARE EXPIRES ON:: 09/18/17 ORDER # VISITS AND/OR THROUGH DATE: 09/18/17 PLAN: Patient has completed 10 visits per order. Patient has not demo enough improvement to justify further visits.
--- NOTE | 2017-09-29 16:27 | RS.OPPTDC ---
Date of Discharge: 09/09/17 Date of Evaluation: 08/19/17 Number of Visits: 10 Treatment Diagnosis: muscle strain of R thigh Current Level of Function: pt demonstrates increased hamstring flexibility and increased strength R hip/knee 4 to 4+/5. pt continues to demonstrate short stride and decreased weight bearing on RLE with mild antalgic gait. Current Complaints/Gains: pt reports slight improvement with walking short distances and up stairs. pt states she still has increased difficulty with getting in and out of car. Pain Assessment - Pain Description Pain Location: RLE Pain Description: Aching Current Pain Intensity: ~4 Functional Outcome Measure LE Functional Scale: 23 (72%) - G Codes & Severity Modifier G Codes & Modifier: mobility dc CL. mobility goal CK Source of G Code score: LE functional scale Observation - Observation Posture: Forward Head, Rounded Shoulders Handedness: Right Gait - Gait Pattern General Gait Pattern Observation: Antalgic Gait, Decrease Stride Lngth (R) General Range of Motion: WFL's Muscle Strength: RLE 4 to 4+/5, LLE 5/5, BUE 5/5 Interventions - Exercise/Activities/Manual Therapy Exercises/Activities: n/a Manual Therapy: na HOME EXERCISE PROGRAM: pt given written HEP including IT band stretch, hamstring stretch, QS, SAQ. added isometric hip add and forward and side lunges - Charges Timed Code Treatment Minutes: n/a Total Treatment Time: n/a Procedures billed for this date of service:: n/a Assessment Assessment: pt has made improvement with decreased hamstring tightness and improved strength as well as improved safety with gait and stairs. Patient Education: Home Exercise Program, Activity Modification, Education of Plan of Care Rehab Potential: Good Short Term Goals Goal #1: pt rate pain < 6/10 with activity Goal to be met by: 09/02/17 Progress towards Goal:: Met Goal #2: pt with decreased hamstring tightness BLE Goal to be met by: 09/02/17 Progress towards Goal:: Met Goal #3: pt amb in dept with no LOB with decreased antalgic gait Goal to be met by: 09/02/17 Progress towards Goal:: Met Goal #4: pt independent with initial HEP Goal to be met by: 09/02/17 Progress towards Goal:: Met Teacher Aide Clerical Goals Goal #1: Improve RLE strength 4 to 4+/5 Goal to be met by: 09/18/17 Progress towards goal: Met Goal #2: Decreased hamstring, IT band tightness to WFL's Goal to be met by: 09/18/17 Progress towards goal: Progressing Goal #3: pt able to lift leg into car with decreased pain and difficulty Goal to be met by: 09/18/17 Progress towards goal: No Change Goal #4: pt amb community distances with decreased antalagic gait Goal to be met by: 09/18/17 Progress towards goal: No Change (short distances only) Plan Comments: pt has met all STG as well as LTG #1, pt decided to dc PT due to slowness of improvement and did not want to continue. She wanted to try HEP and see how she does.
== END 2017-10-05 23:59 ==
PROVIDERS: ATTEND Orthopaedic Surgery
DX: S76.911A Strain of unspecified muscles, fascia and tendons at thigh level, right thigh, initial encounter (principal); M62.89 Other specified disorders of muscle; S76.011A Strain of muscle, fascia and tendon of right hip, initial encounter; M79.651 Pain in right thigh; M62.81 Muscle weakness (generalized)